=== PATIENT | female | born 1990 | race Caucasian/White ===

== ENCOUNTER → 2019-12-04 13:37 | Outpatient (CLI) | payer BC, SELFPAY ==
[2019-12-04 14:16] LABS: Basophils % 0.4 % (0.1-2.0); Eosinophils # 0.1 K/mm3 (0.0-0.4); Eosinophils % 1.3 % (0.1-12.0); Hematocrit 38.7 % (37.0-47.0); Hemoglobin 13.1 g/dL (12.2-16.2); Lymphocytes # 1.4 K/mm3 (0.7-4.5); Mean Corpuscular HGB Conc 33.8 g/dL (31.8-35.4); Mean Corpuscular Hemoglobin 30.2 pg (27.0-31.2); Mean Corpuscular Volume 89.3 fl (81-99); Mean Platelet Volume 8.5 fl (7.4-10.4); Monocytes # 0.4 K/mm3 (0.1-1.0); Neutrophils # 3.4 K/mm3 (1.8-7.8); Neutrophils % 64.2 % (37.0-80.0); Platelet Count 301 K/mm3 (142-424); Red Blood Count 4.33 M/mm3 (4.20-5.40); White Blood Count 5.3 K/mm3 (4.8-10.8)
[2019-12-04 14:49] LABS: Alanine Aminotransferase 17 U/L (12-78); Albumin Level 4.7 g/dl (3.5-5.0); Albumin/Globulin Ratio 1.5 (1.1-1.8); Alkaline Phosphatase 51 U/L (38-126); Aspartate Amino Transferase 20 U/L (14-36); Blood Urea Nitrogen 13 mg/dl (7-17); Calcium 10.3 mg/dl (8.4-10.2); Carbon Dioxide 29 mmol/L (22.0-30.0); Chloride 101 mmol/L (98-107); Chol/HDL Ratio 1.5 (1-3.5); Cholesterol 134 mg/dl (140-200); Estimated Glomerular Filt Rate 117 ml/min (>60); GFR (African American) 142 ML/MIN (>60); Globulin 3.2 g/dL (1.3-3.2); Glucose 101 mg/dl (74-100); HDL Cholesterol 92 mg/dl (40-60); Sodium 138 mmol/L (136-145); Total Protein,Serum 7.9 g/dl (6.3-8.2); Triglycerides 48 mg/dl (30-150); VLDL Cholesterol 10 mg/dL (0-40)
[2019-12-04 15:01] LABS: Direct LDL Cholesterol 50.16 mg/dL (100-129)
[2019-12-04 15:06] LABS: T4 (Thyroxine) 16.5 ug/dl (5.53-11.0)
[2019-12-04 15:08] LABS: HCG,Quantitative < 2 mIU/ml (0-5.42)
[2019-12-04 15:20] LABS: Thyroid Stimulating Hormone 1.79 uIU/mL (0.465-4.68)
[2019-12-06 19:26] LABS: Vitamin D 25 Hydroxy 36.1 ng/mL (30.0-100.0)
== END ==
PROVIDERS: Visit Provider Nurse Practitioner Family
DX: R53.83 Other fatigue (principal)
CPT/HCPCS: 36415; 80053; 80061; 82652; 84436; 84443; 84702; 85025

== ENCOUNTER → 2022-03-13 16:18 | Outpatient (CLI) | payer BC, SELFPAY ==
[2022-03-13 16:31] LABS: Microscopic, Urine URINE MICROSCOPIC (MICROSCOPIC)
[2022-03-13 16:46] LABS: Basophils # 0.1 K/mm3 (0-0.2); Basophils % 0.8 % (0.1-2.0); Eosinophils # 0.1 K/mm3 (0.0-0.4); Eosinophils % 0.6 % (0.1-12.0); Hematocrit 36.3 % (37.0-47.0); Hemoglobin 11.8 g/dL (12.2-16.2); Lymphocytes # 1.3 K/mm3 (0.7-4.5); Lymphocytes % 12.9 % (10-50); Mean Corpuscular HGB Conc 32.5 g/dL (31.8-35.4); Mean Corpuscular Hemoglobin 30.8 pg (27.0-31.2); Mean Corpuscular Volume 94.9 fl (81-99); Mean Platelet Volume 8.9 fl (7.4-10.4); Monocytes # 0.8 K/mm3 (0.1-1.0); Monocytes % 8.1 % (1.7-9.3); Neutrophils % 77.7 % (37.0-80.0); Platelet Count 265 K/mm3 (142-424); Red Blood Count 3.82 M/mm3 (4.20-5.40); Red Cell Distribution Width 12.8 % (11.5-17.5); White Blood Count 10.4 K/mm3 (4.8-10.8)
[2022-03-13 16:47] LABS: Appearance,Urine CLEAR (Clear); Bilirubin,Urine Negative (Negative); Blood, Urine Negative (Negative); Color,Urine YELLOW (Yellow); Glucose,Urine (UA) Negative (Negative); Ketones,Urine Negative (Negative); Leukocyte Esterase,Urine Negative (Negative); Nitrate,Urine Negative (Negative); PH,Urine 5.5 (5.0-8.5); Protein,Urine Negative (Negative); Specific Gravity, Urine 1.015 (1.005-1.030); Urobilinogen,Urine 0.2 EU/dl (0.2)
[2022-03-13 17:17] LABS: Chloride 105 mmol/L (98-107); Potassium 3.9 mmoL/L (3.5-5.1); Sodium 135 mmol/L (136-145)
[2022-03-13 17:20] LABS: Anion Gap 7.9 mEq/L (5-15); Blood Urea Nitrogen 7 mg/dl (7-17); Calcium 9.8 mg/dl (8.4-10.2); Carbon Dioxide 26 mmol/L (22.0-30.0); Estimated Glomerular Filt Rate 185 ml/min (>60); GFR (African American) 224 ML/MIN (>60); Glucose 103 mg/dl (74-100); Iron 72 ug/dL (37-170)
[2022-03-13 17:21] LABS: RBC,Urine Occasional #/hpf (0-3); WBC,Urine Occasional #/hpf (0-3)
[2022-03-13 17:22] LABS: Bacteria,Urine 1+ /lpf
== END ==
PROVIDERS: Visit Provider Internal Medicine
DX: Z32.00 Encounter for pregnancy test, result unknown (principal)
CPT/HCPCS: 36415; 80048; 81001; 83540; 85025

== ENCOUNTER 2022-06-12 06:51 | Outpatient (CLI) | payer BC, SELFPAY ==
[2022-06-12] VITALS (21 sets, daily range): BP systolic 120–156; BP diastolic 67–96; PULSE 78–105; RESP 19; TEMP 36.7; O2SAT 98–99; BMI 30.2
[2022-06-12 07:50] LABS: Microscopic, Urine URINE MICROSCOPIC (MICROSCOPIC)
[2022-06-12 07:51] LABS: Appearance,Urine CLEAR (Clear); Bilirubin,Urine Negative (Negative); Blood, Urine TRACE-I (Negative); Color,Urine YELLOW (Yellow); Glucose,Urine (UA) Negative (Negative); Ketones,Urine Negative (Negative); Leukocyte Esterase,Urine Negative (Negative); Nitrate,Urine Negative (Negative); Protein,Urine TRACE (Negative); Specific Gravity, Urine >= 1.030 (1.005-1.030); Urobilinogen,Urine 0.2 EU/dl (0.2)
[2022-06-12 08:03] LABS: Amphetamine/Metha Screen,Urine Negative ng/ml (<1000)
[2022-06-12 08:04] LABS: Barbiturates Screen,Urine Negative ng/ml (<200); Benzodiazepines Screen,Urine Negative ng/ml (<200)
[2022-06-12 08:05] LABS: Cannabinoid Screen,Urine Negative ng/ml (<50)
[2022-06-12 08:06] LABS: Cocaine Screen,Urine Negative ng/ml (<300); Methadone Screen,Urine Negative ng/ml (<300)
[2022-06-12 08:07] LABS: Phencyclidine Screen,Urine Negative ng/ml (<25)
[2022-06-12 08:08] LABS: Opiate Screen,Urine Negative ng/ml (<300)
[2022-06-12 08:11] LABS: Bacteria,Urine Trace /lpf; Mucus,Urine Trace /lpf; RBC,Urine Occasional #/hpf (0-3); Squamous Epithelial Cell,Urine Occasional #/hpf (0-5)
[2022-06-12 09:00] LABS: Basophils # 0.1 K/mm3 (0-0.2); Basophils % 0.5 % (0.1-2.0); Eosinophils # 0.1 K/mm3 (0.0-0.4); Eosinophils % 0.8 % (0.1-12.0); Hematocrit 33.9 % (37.0-47.0); Hemoglobin 11.4 g/dL (12.2-16.2); Lymphocytes # 2.4 K/mm3 (0.7-4.5); Lymphocytes % 25.7 % (10-50); Mean Corpuscular HGB Conc 33.7 g/dL (31.8-35.4); Mean Corpuscular Hemoglobin 29.7 pg (27.0-31.2); Mean Corpuscular Volume 88.1 fl (81-99); Mean Platelet Volume 9.3 fl (7.4-10.4); Monocytes # 0.5 K/mm3 (0.1-1.0); Monocytes % 4.9 % (1.7-9.3); Neutrophils # 6.4 K/mm3 (1.8-7.8); Platelet Count 274 K/mm3 (142-424); Red Blood Count 3.85 M/mm3 (4.20-5.40); White Blood Count 9.4 K/mm3 (4.8-10.8)
[2022-06-12 09:17] LABS: Alanine Aminotransferase 38 U/L (12-78); Albumin Level 3.6 g/dl (3.5-5.0); Albumin/Globulin Ratio 1.1 (1.1-1.8); Alkaline Phosphatase 211 U/L (38-126); Anion Gap 13.6 mEq/L (5-15); Aspartate Amino Transferase 40 U/L (14-36); Bilirubin,Total 0.9 mg/dl (0.2-1.3); Blood Urea Nitrogen 5 mg/dl (7-17); Calcium 9.2 mg/dl (8.4-10.2); Carbon Dioxide 23 mmol/L (22.0-30.0); Chloride 101 mmol/L (98-107); Creatinine Clearance Estimated 236 mL/min (50-200); Estimated Glomerular Filt Rate 184 ml/min (>60); GFR (African American) 222 ML/MIN (>60); Globulin 3.3 g/dL (1.3-3.2); Glucose 100 mg/dl (74-100); Potassium 3.6 mmoL/L (3.5-5.1); Sodium 134 mmol/L (136-145); Total Protein,Serum 6.9 g/dl (6.3-8.2); Uric Acid 4.1 mg/dl (2.5-6.2)
[2022-06-12 09:21] LABS: Activated Partial Thrombo Time 26.6 seconds (22.8-30.6); D-Dimer 1.06 ug/mL (0.0-0.5); Fibrinogen 496 mg/dL (229.9-363.5); Prothrombin Time 9.8 seconds (10.1-12.5)
== END 2022-06-12 11:04 | disposition home or self-care (01) ==
LOC: OBOUT 06:59 → OB 07:00
PROVIDERS: Obstetrics & Gynecology; Visit Provider Obstetrics & Gynecology
DX: O47.00 False labor before 37 completed weeks of gestation, unspecified trimester (principal); Z3A.35 35 weeks gestation of pregnancy
CPT/HCPCS: 59025; 80053; 80305; 81001; 84550; 85025; 85378; 85384; 85610; 85730; 96365; 96366; 96372; G0463

== ENCOUNTER 2022-07-08 10:20 | Emergency (ER) | payer BC, SELFPAY ==
[2022-07-08 10:21] VITALS: BP 129/86; PULSE 125; RESP 17; TEMP 36.7; O2SAT 99; BMI 28.3
--- NOTE | 2022-07-08 10:36 | PC.NURSE ---
1036 RN AT BEDSIDE WHILE PERFORMS BREAST U/S. PT PLACED IN GOWN. WARM BLANKET PROVIDED
--- NOTE | 2022-07-08 10:42 | HMH.EDGENADL ---
Discharge Plan Disposition Patient Disposition: Home, Self-Care Condition: Good Prescriptions Prescriptions: New cefadroxil 500 mg capsule 500 mg PO BID 7 Days Qty: 14 0RF No Action Pre-Maylin Multivitamins/Minerals 27-1-300 mg Capsule 1 cap PO DAILY Referrals Follow up/Referrals: Provider,Referral, [Primary Care Provider] - See instructions Clinical Impressions Clinical Impression: Acute breast pain, Cellulitis of right breast, Occlusion of lactiferous duct of right breast Discharge ED Provider: Milo Ortez General Adult HPI General Chief complaint: Fever Stated complaint: fever csection 3 weeks ago Time Seen by Provider: 07/08/22 10:30 Mode of Arrival: Ambulatory Source of Information: Patient Limitations: No Limitations History of Present Illness HPI narrative: This is an otherwise healthy 32-year-old female who is G1, P1 3 weeks out from delivery presenting with fever, breast pain. Patient states that on 07/07 in the PM, she began having right-sided breast tenderness and fever of 100.9. Has not noticed anything that makes the pain or discomfort better. Applying pressure makes the pain worse. She has also been nauseous without vomiting. Denies cough, shortness of breath, chest pain, vomiting, diarrhea, abdominal pain, dysuria, hematuria, abnormal vaginal discharge or bleeding, or any other concerning symptoms. Related Data Home Medications Medication Instructions Recorded Confirmed [id number] 3-fat com #1 27 1 cap PO DAILY Supplement 06/12/22 06/12/22 mg-1 mg-300 mg capsule Previous Rx's Medication Instructions Recorded cefadroxil 500 mg capsule 500 mg PO BID 7 days #14 caps 07/08/22 Allergies Allergy/AdvReac Type Severity Reaction Status Date / Time No Known Drug Allergies - Allergy Unknown NA Uncoded 05/30/21 13:50 Nkda [facility] Disclaimer: The information contained in this section may have been updated after the patient was seen, as this information can be updated by other users. Medical History (Updated 07/08/22 @ 10:48 by Milo Ortez MD) No significant past medical history Family History (Updated 06/12/22 @ 08:45 by Liz Evans, DAHIANA) Father Family history of hypertension Mother Family history of hypertension Other No significant family history Social History (Updated 06/12/22 @ 07:50 by Liz Evans RN) Smoking Status: Never smoker alcohol intake: never current occupational status: employed Travel in the last 8 weeks: None ROS Obtained: Yes All systems reviewed & no additional complaints except as documented Physical Exam General General appearance: alert and in no apparent distress Head Head exam: atraumatic, normocephalic and normal inspection Eye Eye exam: Present normal appearance, PERRL and EOMI ENT ENT exam: Present normal exam, normal oropharynx, mucous membranes moist, TM's normal bilaterally and normal external ear exam Neck Neck exam: Present normal inspection, full ROM and trachea midline; Absent meningismus or lymphadenopathy Chest Chest inspection: Present symmetric chest wall rise; Absent normal inspection or tenderness Expanded Chest Exam Breast: right: erythema, swelling, tenderness and mass Comment: No evidence of lymphadenopathy, redness or streaking beyond point of tenderness. Respiratory Respiratory exam: Present normal lung sounds bilaterally; Absent respiratory distress Cardiovascular Cardiovascular exam: Present regular rate and normal rhythm; Absent JVD Abdominal Exam Abdominal exam: Present soft and normal bowel sounds; Absent distention, tenderness or guarding Extremities Exam Extremities exam: Present normal inspection, full ROM and normal capillary refill; Absent calf tenderness Back Exam Back exam: Present normal inspection; Absent tenderness Neurological Exam Neurological exam: Present alert and oriented X3 Psychiatric Psychiatric exam: Present normal
[2022-07-08 10:58] VITALS: BP 110/77; PULSE 100; RESP 17; TEMP 36.7; O2SAT 99
== END 2022-07-08 11:00 | disposition home or self-care (01) ==
PROVIDERS: Emergency Provider Emergency Medicine
DX: N61.0 Mastitis without abscess (principal); R50.9 Fever, unspecified; R11.0 Nausea; D21.9 Benign neoplasm of connective and other soft tissue, unspecified
CPT/HCPCS: 99283

== ENCOUNTER 2023-04-07 10:32 | Emergency (ER) | payer BC, SELFPAY ==
[2023-04-07 11:10] VITALS: BP 141/90; PULSE 83; RESP 21; TEMP 36.6; O2SAT 99; BMI 23.1
--- NOTE | 2023-04-07 11:32 | EXP.UTC ---
Discharge Plan Disposition Patient Disposition: Home, Self-Care Condition: Good Prescriptions Prescriptions: New ondansetron 4 mg Tablet,Disintegrating 4 mg PO Q8H PRN (Reason: Nausea) Qty: 20 0RF Referrals Follow up/Referrals: Provider,Referral, MD [Primary Care Provider] - See instructions Activity Restrictions/Add. Instructions Additional Instructions/Restrictions: Go home lay down and sleep off remainder of headache You was prescribed Zofran if you need to take something later for the Nausea and vomiting Return if needed Straight to ER if any life threatening symptoms Clinical Impressions Clinical Impression: Migraine Qualifiers: Migraine type: unspecified Status migrainosus presence: without status migrainosus Intractability: not intractable Qualified Code(s): G43.909 - Migraine, unspecified, not intractable, without status migrainosus Instructions Patient Instructions: Migraine -- Adult, DI for Nausea -- Adult, DI for Vomiting -- Adult Discharge ED Provider: Yue Naranjo [facility] General Stated complaint: h/a, vomiting Mode of Arrival: Ambulatory Source of Information: Patient Limitations: No Limitations Time Seen by Provider: 04/07/23 11:37 Description of Symptoms (Recalled from Triage Doc. by RN): PATIENT C/O VOMITING, NAUSEA AND HEADACHE THAT STARTED THIS MORNING HEENT Symptoms (Recalled from RN notes): Yes Resp Symptoms (Recalled from RN notes): No Skin Symptoms (Recalled from RN notes): No MS Symptoms (Recalled from RN notes): No Functional Status (Recalled from RN notes): WNL History of Present Illness Provider Complaint: Patient states that this morning she started with headache, nausea and vomiting States that she has had headaches before States that she has been having N/V since the headache started Denies worse headache of her life State that she has not felt ill prior to this am Denies fever Denies worse headache of her life and denies vision changes Related Data Previous Rx's Medication Instructions Recorded ondansetron 4 mg disintegrating 4 mg PO Q8H PRN Nausea #20 tabs 04/07/23 tablet Allergies Allergy/AdvReac Type Severity Reaction Status Date / Time No Known Allergies Allergy Verified 04/07/23 11:29 Worker's Comp Is this a Worker's Comp case?: No [facility] Disclaimer: The information contained in this section may have been updated after the patient was seen, as this information can be updated by other users. Medical History (Updated 04/07/23 @ 12:12 by Yue Naranjo APRN) No significant past medical history Family History (Updated 06/12/22 @ 08:45 by iLz Evans RN) Father Family history of hypertension Mother Family history of hypertension Other No significant family history Social History (Updated 06/12/22 @ 07:50 by Liz Evans RN) Smoking Status: Never smoker alcohol intake: never current occupational status: employed Travel in the last 8 weeks: None ROS Obtained: Yes All systems reviewed & no additional complaints except as documented and Yes Systems reviewed as appropriate & no additional complaints except as documented Constitutional Constitutional: Reports system reviewed and no additional complaints, except as documented, Reports as per HPI, Denies fever(s), Reports headache(s) and Denies weakness Eyes Eyes: Denies loss of vision ENT Ears, Nose, Mouth, and Throat: Reports system reviewed and no additional complaints, except as documented, Reports as per HPI, Reports headache(s) and Denies vertigo Cardiovascular Cardiovascular: Reports system reviewed and no additional complaints, except as documented, Reports as per HPI and Denies syncope Respiratory Respiratory: Reports system reviewed and no additional complaints, except as documented and Reports as per HPI Gastrointestinal Gastrointestingal: Reports system reviewed and no additional complaints, except as documented, as per HPI, nausea and vomiting; Cheo
[2023-04-07 12:06] LABS: UTC Pregnancy Test, Urine Negative (Negative)
[2023-04-07 12:09] VITALS: BP 141/90; PULSE 83; RESP 21; TEMP 36.6; O2SAT 99
== END 2023-04-07 12:15 | disposition home or self-care (01) ==
PROVIDERS: Emergency Provider Nurse Practitioner
DX: G43.909 Migraine, unspecified, not intractable, without status migrainosus (principal); R11.2 Nausea with vomiting, unspecified
CPT/HCPCS: 81025; 96372; 99204; 99212; G0463

== ENCOUNTER → 2023-04-23 11:08 | Outpatient (CLI) | payer BC, SELFPAY ==
--- NOTE | 2023-04-23 11:11 | XR_ITS ---
FINAL REPORT TECHNIQUE: 5 views CLINICAL HISTORY: low back pain x 1 mos, no known injury COMPARISON: None FINDINGS: There is no fracture present. There is no malalignment. There are no significant degenerative changes. IMPRESSION: No acute process. Reviewed, Interpreted and Dictated by Sukumar Palacios MD Transcribed by Hemalatha Khan Authenticated and . [facility]
[2023-04-23 13:25] LABS: Basophils % 0.4 % (0.1-2.0); Eosinophils # 0.1 K/mm3 (0.0-0.4); Eosinophils % 1.8 % (0.1-12.0); Hematocrit 42.4 % (37.0-47.0); Hemoglobin 13.6 g/dL (12.2-16.2); Lymphocytes # 1.3 K/mm3 (0.7-4.5); Lymphocytes % 28.3 % (10-50); Mean Corpuscular HGB Conc 32.1 g/dL (31.8-35.4); Mean Corpuscular Hemoglobin 28.4 pg (27.0-31.2); Mean Corpuscular Volume 88.4 fl (81-99); Mean Platelet Volume 9.9 fl (7.4-10.4); Monocytes # 0.3 K/mm3 (0.1-1.0); Monocytes % 6.8 % (1.7-9.3); Neutrophils # 2.9 K/mm3 (1.8-7.8); Neutrophils % 62.7 % (37.0-80.0); Platelet Count 281 K/mm3 (142-424); Red Cell Distribution Width 13.2 % (11.5-17.5); White Blood Count 4.5 K/mm3 (4.8-10.8)
[2023-04-23 13:57] LABS: Alanine Aminotransferase 17 U/L (12-78); Albumin Level 4.8 g/dl (3.5-5.0); Albumin/Globulin Ratio 1.5 (1.1-1.8); Alkaline Phosphatase 70 U/L (38-126); Anion Gap 14.8 mEq/L (5-15); Aspartate Amino Transferase 23 U/L (14-36); Bilirubin,Total 1.8 mg/dl (0.2-1.3); Blood Urea Nitrogen 11 mg/dl (7-17); Calcium 9.3 mg/dl (8.4-10.2); Carbon Dioxide 26 mmol/L (22.0-30.0); Chloride 102 mmol/L (98-107); Chol/HDL Ratio 2.2 (1-3.5); Cholesterol 171 mg/dl (140-200); Estimated Glomerular Filt Rate 115 ml/min (>60); GFR (African American) 139 ML/MIN (>60); Globulin 3.2 g/dL (1.3-3.2); Glucose 89 mg/dl (74-100); HDL Cholesterol 79 mg/dl (40-60); Potassium 4.8 mmoL/L (3.5-5.1); Sodium 138 mmol/L (136-145); Triglycerides 50 mg/dl (30-150); VLDL Cholesterol 10 mg/dL (0-40)
[2023-04-23 14:08] LABS: Direct LDL Cholesterol 76.03 mg/dL (100-129)
[2023-04-23 14:14] LABS: 25-OH Vitamin D, Total 37.1 ng/mL (30-100)
[2023-04-23 14:15] LABS: Free T4 (Free Thyroxine) 1.18 ng/dl (0.78-2.19)
[2023-04-23 14:25] LABS: Hemoglobin A1C 5.4 % (4.0-6.0)
[2023-04-23 14:29] LABS: Thyroid Stimulating Hormone 1.28 uIU/mL (0.465-4.68)
[2023-04-23 14:48] LABS: Vitamin B12 592 pg/mL (239-931)
== END ==
PROVIDERS: PCP Nurse Practitioner Family; Visit Provider Nurse Practitioner Family
DX: M54.50 Low back pain, unspecified (principal); F41.9 Anxiety disorder, unspecified; R53.83 Other fatigue; Z13.1 Encounter for screening for diabetes mellitus; Z13.220 Encounter for screening for lipoid disorders; Z68.23 Body mass index [BMI] 23.0-23.9, adult
CPT/HCPCS: 72110; 80053; 80061; 82306; 82607; 83036; 84439; 84443; 85025

== ENCOUNTER → 2023-04-23 14:43 | Outpatient (CLI) | payer BC, SELFPAY | PROVIDERS: PCP Nurse Practitioner Family; Visit Provider Nurse Practitioner Family | DX: M54.50 Low back pain, unspecified (principal) ==

== ENCOUNTER → 2023-05-02 09:43 | Outpatient (CLI) | payer BC, SELFPAY ==
--- NOTE | 2023-05-02 09:44 | MR_ITS ---
PROCEDURE INFORMATION: Exam: MR Pelvis Without Contrast, Musculoskeletal Exam date and time: 05/02/2023 9:38 AM Age: 32 years old Clinical indication: Other: Low back pain; Patient HX: Lower back pain, small palpable area (marker placed on area), elevated white count, fatigue. TECHNIQUE: Imaging protocol: Magnetic resonance imaging of the pelvis without contrast. Exam focused on the musculoskeletal system. COMPARISON: CR XR LUMBAR SPINE MIN 4V 04/23/2023 11:18 AM FINDINGS: Intraperitoneal space: A physiologic amount of free fluid is present within the pelvis. Reproductive: The uterus has two endometrial horns suggesting bicornuate or arcuate morphology. The morphology of the fundal contour (convex versus having a cleft) cannot be definitively assessed for differentiation. There are bilateral physiologic ovarian cysts/follicles. A defect in the anterior inferior uterine wall is most consistent with prior Caesarean section. Lymph nodes: No adenopathy. Bones/joints: There is no acute fracture or dislocation. No aggressive bone lesions are present. There is no significant degenerative change. Soft tissues: A skin marker was placed in the symptomatic region of the left lower back. This is located at the upper limits of the field of view of the axial sequences. Mild edema is present in the subcutaneous fat distal to the skin marker. The subcutaneous fat is lobulated similar to the contralateral asymptomatic side of the lower back without a grossly apparent lipoma. The paraspinal musculature is normal. No soft tissue gas or abscess. IMPRESSION: 1. Symptomatic region of the left lower back indicated with a skin marker corresponds to nonspecific edema in the subcutaneous fat distal to the marker. No mass or abscess. A lipoma is difficult to exclude in the setting of diffusely lobulated fat. 2. 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
== END ==
PROVIDERS: PCP Nurse Practitioner Family; Visit Provider Nurse Practitioner Family
DX: R22.2 Localized swelling, mass and lump, trunk (principal); M54.50 Low back pain, unspecified
CPT/HCPCS: 72195

== ENCOUNTER 2023-06-15 17:00 | Outpatient (RCR) | payer BC, SELFPAY | END 2023-06-15 17:55 | disposition home or self-care (01) | LOC: PT 17:00 | PROVIDERS: PCP Nurse Practitioner Family; Visit Provider Nurse Practitioner Family | DX: M54.50 Low back pain, unspecified (principal) | CPT/HCPCS: 20561; 97010; 97014; 97110; 97163; G0283 ==

== ENCOUNTER 2023-09-10 07:36 | Outpatient (CLI) | payer BC, SELFPAY ==
--- NOTE | 2023-09-10 07:36 | MR_ITS ---
FINAL REPORT CLINICAL HISTORY: lumbar spine pain into right hip. COMPARISON: None FINDINGS: Multiplanar MR imaging of the lumbar spine was performed without contrast. On the sagittal T2-weighted images, mild disc degeneration is seen. The vertebral alignment is normal. There is no evidence of fracture. No bony mass is identified. The conus has an unremarkable appearance. No significant canal stenosis is identified. L1-2: No significant central canal stenosis or neuroforaminal narrowing. L2-3: No significant central canal stenosis or neuroforaminal narrowing. L3-4: No significant central canal stenosis or neuroforaminal narrowing. L4-5: No significant central canal stenosis or neuroforaminal narrowing. Note is made of a 3 mm synovial cyst in the posterior aspect of the left L4-5 facet. L5-S1: A small annular bulge is identified without evidence of canal stenosis or neural foraminal narrowing. IMPRESSION: No significant central canal stenosis or neuroforaminal narrowing. Reviewed, Interpreted and Dictated by Blanco Lynch III, MD Transcribed by Hemalatha Khan Authenticated and [facility]
== END 2023-09-10 23:59 ==
LOC: RAD 07:36
PROVIDERS: PCP Nurse Practitioner Family; Visit Provider Nurse Practitioner Family
DX: M54.50 Low back pain, unspecified (principal)
CPT/HCPCS: 72148; 76376

== ENCOUNTER 2024-01-18 14:32 | Outpatient (CLI) | payer BC, SELFPAY ==
--- NOTE | 2024-01-18 14:32 | US_ITS ---
PROCEDURE INFORMATION: Exam: US Right Breast, Complete US Left Breast, Complete Exam date and time: 01/18/2024 2:50 PM Age: 33 years old Clinical indication: Bilateral breast pain. TECHNIQUE: Imaging protocol: Complete ultrasound of all four quadrants of the right breast and the retroareolar regions, including ultrasound of the axilla when performed. Complete ultrasound of all four quadrants of the left breast and the retroareolar regions, including ultrasound of the axilla when performed. COMPARISON: No relevant prior studies available. FINDINGS: ULTRASOUND: Breast ultrasound findings: Bilateral sonography, all 4 quadrants, and axilla. On the right, at 10 o'clock 6 cm from the nipple, oval tubular masslike area with avascular low-level echoes which is more likely a dilated duct with debris, similar to the findings in the retroareolar region. Sonographically unremarkable axillary lymph node. On the left, no sonographic findings demonstrated. Sonographically unremarkable axillary lymph node. IMPRESSION: Probable dilated ducts with debris on the right retroareolar region and more focally at 10 o'clock, correlate for history of nipple discharge. Suggest adding bilateral diagnostic mammogram for above finding as well as history of bilateral breast pain. Further evaluation of a painful abnormality should be based on clinical grounds regardless of radiographic findings or lack thereof. ASSESSMENT: BI-RADS Category 0: Incomplete: Need Additional Imaging Evaluation and/or Prior Mammograms for Comparison
== END 2024-01-18 23:59 | disposition home or self-care (01) ==
LOC: RAD 14:32
PROVIDERS: PCP Nurse Practitioner Family; Visit Provider Obstetrics & Gynecology
DX: N64.4 Mastodynia (principal)
CPT/HCPCS: 76641

== ENCOUNTER 2024-04-08 12:24 | Outpatient (CLI) | payer BC, SELFPAY ==
[2024-04-08 13:32] LABS: HCG,Quantitative 9708 mIU/ml (0-5.42)
[2024-04-09 12:37] LABS: Progesterone 8.7 ng/mL (.)
== END 2024-04-08 23:59 | disposition home or self-care (01) ==
LOC: LAB 12:24
PROVIDERS: PCP Nurse Practitioner Family; Visit Provider Obstetrics & Gynecology
DX: Z32.01 Encounter for pregnancy test, result positive (principal); N92.6 Irregular menstruation, unspecified
CPT/HCPCS: 36415; 84144; 84702

== ENCOUNTER 2024-04-22 11:05 | Outpatient (CLI) | payer BC, SELFPAY ==
--- NOTE | 2024-04-22 11:09 | US_ITS ---
PROCEDURE: US OB <= 14 WEEKS FETUS CLINICAL INDICATION: Dates and Viability COMPARISON: No exams were available for comparison FINDINGS: Transvaginal sonographic images of the pelvis were obtained. From her last menstrual period she is 9weeks 0 days. An intrauterine gestational sac is present with a pole with a crown-rump length of 1.32cm This correlates to a gestational age of 7weeks 5days. DYLON 12/04/2024. heart tones are present with an FHR of 158bpm. Yolk sac is noted. The yolk sac measures 5.1mm. There is a posterior fibroid measuring 1.35 cm x 1.24 cm x 1.92 cm. There is a 2nd smaller fibroid measuring 0.52 cm. There is a third fibroid measures 1.03 cm. The right ovary is seen and appears normal. There are multiple small peripheral follicles. The left ovary is seen and appears normal. There is no fluid in the cul-de-sac. IMPRESSION: 1. Viable fetus within the uterine cavity. 2. There are 3 small fibroids within the uterus. The largest measures 1.9 cm. 3. The size and dates are off and the revised DYLON is 12/04/2024. 4. Both ovaries are seen and appear normal. 5. No fluid in the cul-de-sac. Dictated by: Darrel Chappell MD 04/23/2024 06:46 Darrel Chappell MD in OV 04/23/2024 06:46
[2024-04-22 15:25] LABS: HIV (1&2) Antibody Rapid NONREACTIVE (NONREACTIVE)
[2024-04-22 16:09] LABS: Basophils % 0.6 % (0.1-2.0); Eosinophils # 0.1 K/mm3 (0.0-0.4); Hematocrit 41.8 % (37.0-47.0); Hemoglobin 13.3 g/dL (12.2-16.2); Lymphocytes # 1.6 K/mm3 (0.7-4.5); Lymphocytes % 21.7 % (10-50); Mean Corpuscular HGB Conc 31.7 g/dL (31.8-35.4); Mean Corpuscular Hemoglobin 30.1 pg (27.0-31.2); Mean Corpuscular Volume 94.9 fl (81-99); Mean Platelet Volume 8.4 fl (7.4-10.4); Monocytes # 0.5 K/mm3 (0.1-1.0); Monocytes % 6.6 % (1.7-9.3); Neutrophils # 5.2 K/mm3 (1.8-7.8); Neutrophils % 70.1 % (37.0-80.0); Platelet Count 293 K/mm3 (142-424); Red Cell Distribution Width 12.5 % (11.5-17.5); White Blood Count 7.4 K/mm3 (4.8-10.8)
[2024-04-23 08:21] LABS: HCV Ab Non Reactive (Non Reactive); Hepatitis B Surface Antigen Negative (Negative); Rubella Antibodies, IgG 6.55 index (Immune >0.99)
[2024-04-23 14:15] LABS: Rapid Plasma Reagin Ab Titer Non Reactive titer (NonRea<1:1)
== END 2024-04-22 23:59 | disposition home or self-care (01) ==
LOC: LAB 11:06
PROVIDERS: PCP Nurse Practitioner Family; Visit Provider Obstetrics & Gynecology
DX: Z36.87 Encounter for antenatal screening for uncertain dates (principal); O34.00 Maternal care for unspecified congenital malformation of uterus, unspecified trimester; Q51.3 Bicornate uterus; O09.299 Supervision of pregnancy with other poor reproductive or obstetric history, unspecified trimester; Z3A.09 9 weeks gestation of pregnancy
CPT/HCPCS: 36415; 76801; 85025; 86593; 86762; 86803; 86850; 86870; 87086; 87340; 87389

== ENCOUNTER 2024-05-09 10:01 | Outpatient (CLI) | payer BC, SELFPAY ==
--- NOTE | 2024-05-09 10:05 | US_ITS ---
PROCEDURE: US OB <= 14 WEEKS FETUS CLINICAL INDICATION: confirm viability COMPARISON: US US OB <= 14 WEEKS FETUS from 04/22/2024 US US PELVIC from 05/09/2024 FINDINGS: Transvaginal sonographic images of the pelvis were obtained. From her last menstrual period she is 10weeks 0 days. An intrauterine gestational sac is present with a pole with a crown-rump length of 1.8cm This correlates to a gestational age of 8weeks 3days. heart tones are absent. The right ovary is seen and appears normal. The left ovary is seen and appears normal. There is no fluid in the cul-de-sac. IMPRESSION: 1. Nonviable fetus within the uterine cavity measuring 8 weeks 3 days. 2. heart rate activity is not seen. 3. Both ovaries are seen and appear normal. 4. No fluid in the cul-de-sac. 5. A 2nd transabdominal ultrasound done during a D and C shows no residual tissue. Dictated by: Darrel Chappell MD 05/10/2024 07:09 Darrel Chappell MD in OV 05/10/2024 07:09
== END 2024-05-09 23:59 | disposition home or self-care (01) ==
PROVIDERS: PCP Nurse Practitioner Family; Visit Provider Obstetrics & Gynecology
DX: O34.01 Maternal care for unspecified congenital malformation of uterus, first trimester (principal); Q51.3 Bicornate uterus; O09.291 Supervision of pregnancy with other poor reproductive or obstetric history, first trimester; Z3A.10 10 weeks gestation of pregnancy
CPT/HCPCS: 76801

== ENCOUNTER 2024-05-09 12:53 | Day surgery (SDC) | payer BC, SELFPAY ==
[2024-05-09] VITALS (9 sets, daily range): BP systolic 110–142; BP diastolic 64–71; PULSE 88–104; RESP 14–18; TEMP 36.6–37.2; O2SAT 94–100; BMI 24.7
--- NOTE | 2024-05-09 | US_ITS ---
PROCEDURE: US PELVIC CLINICAL INDICATION: Post dilation and evacuation ultrasound in the operating room COMPARISON: US US OB <= 14 WEEKS FETUS from 05/09/2024 FINDINGS: A transabdominal ultrasound was done during dilation and evacuation procedure. No retrained products of conception. IMPRESSION: 1. Ultrasound performed during surgical dilation and evacuation shows no retained products of conception. Dictated by: Darrel Chappell MD 05/10/2024 07:23 Darrel Chappell MD in OV 05/10/2024 07:23
[2024-05-09] MEDS: DOXYCYCLINE HYCL 100 MG TABLET 200 MG PO (13:11)
[2024-05-09] MEDS: ACETAMINOPHEN 500MG TAB 1000 MG PO (13:12)
[2024-05-09] MEDS: LACTATED RINGERS 1000ML 1,000 ML 25 ML IV (13:12)
[2024-05-09] MEDS: ONDANSETRON 4MG/2ML VIAL 4 MG IV (13:45)
--- NOTE | 2024-05-09 15:14 | P.PNANES_ITS ---
[facility] Disclaimer: The information contained in this section may have been updated after the patient was seen, as this information can be updated by other users. Medical History Missed Advanced maternal age in multigravida Uterine fibroids affecting Bicornuate uterus affecting , antepartum History of miscarriage, currently Anxiety Thoracic scoliosis Bulging lumbar disc Palpable mass of lower back Surgical History History of Family History Father Family history of hypertension Mother Family history of hypertension Social History Smoking Status: Never smoker alcohol intake: never substance use type: denies use current occupational status: employed Travel in the last 8 weeks: None [facility] Anesthesia Checklist Patient Identification Patient Identification: Arm Band Structural Data Admitted From: Home Planned Operative Procedure/s: D&C with Dodge Suction Consent for Planned Operative Procedure(s) Verified: Yes Verified Documents: Surgical Consent and History and Physical NPO Status Verified Time NPO: 09:00 (light breakfast) Additional verifications Anesthesia Reactions: No Hx Blood Transfusions: No Airway Assessment Mallampati Score:: Class II C-Spine Mobility Assessed: Yes TMJ Mobility Assessed: Yes Dentition: Good Dentition Neurological Assessment Level of Consciousness: Awake, Alert and Appropriate Anesthesia Plan Anesthesia Risk discussed: Yes Anesthesia Plan: Verified ASA Class: I Anesthesia Type: General
--- NOTE | 2024-05-09 15:34 | EXP.ANES.I ---
[facility] Anesthesia Record Part I Anesthesia Record I Intake, IV Amount: 1,000 Hydration: Adequate Estimated blood loss (mL): 25 Urine output (mL): 0 Blood Products used (#): none Blood Pressure: 118/71 SaO2: 94 Pulse Rate: 88 Airway Patency: Patent Respiratory Rate: 16 Temperature: 99 F Patient is:: Drowsy and Stable Stable to PACU at:: 15:30
--- NOTE | 2024-05-09 15:38 | P.OP_ITS ---
Date of procedure: 05/09/24 Pre-op Diagnosis:: 1. Missed 2. Birconuate uterus 3. ABO RH: A positive Post-op Diagnosis:: 1. Missed 2. Birconuate uterus 3. ABO RH: A positive Procedure performed:: Ultrasound guided suction D&C Surgeon:: Ree Soriano DO Enterprise Systems Architect(s):: N/a BARN MANAGER:: Shahram Ramos Anesthesia: GETA Estimated blood loss (mL): 25 Clinical Note:: Mrs Vivi Espinoza is a 34 yo at 10w1d who presents to [facility] for scheduled procedure. She was seen in the office today for second ob visit. Ultrasound in the office was very poor quality and difficult to visualize baby. Vivi was sent to [facility] radiology for follow-up ultrasound. Ultrasound at [facility] demonstrated CRL 8w3d with no cardiac activity. Ultrasound consistent with missed . Discussed expectant management vs cytotec vs Suction D&C. She used Cytotec with last miscarriage and it was very hard emotionally. Discussion ensued. Decision was made to proceed with suction D&C. Will send products of conception for chromosomal analysis and karyotyping. This is her second miscarriage. She received Doxycycline 200 mg PO in preop. Operative findings:: 1. Cervix grossly normal. On bimanul exam, uterus midposition, approximately 10 week size. No adnexal masses palpated. Operative note:: Risks, benefits and alternatives were discussed with the patient. Risks include but are not limited to bleeding, infection, uterine perforation and VTE. Patient voiced understanding and agreed to proceed. She was wheeled back to the operating room and placed under general anesthesia without difficulty. She was placed in dorsal lithotomy position and prepped and draped in the normal sterile fashion. A bimanual exam was performed. A weighted Auvard was placed in the vaginal vault. Ringed forcep was used to grasp anterior lip of the cervix. Uterus sounded to 12. Sequential Axel dilators were used to dilate the cervical os. Ultrasound was performed during surgery to ensure complete removal of products of conception. Bowman suction was set to 40 mm Hg. An 8 mm curved palauan suction curettage was advanced into the uterine cavity without difficulty and was used to suction contents of the uterus. Following removal of the products of conception, a medium sized sharp curette was advanced into the uterine cavity and was used to gently scrape the uterine locke until a gritty texture was noted. At this time, the suction curette was advanced one more time to suction any remaining products of conception and blood. Instruments were removed from the vagina. Patient was awaken from anesthesia without difficulty. Products of conception will be sent to pathology as well as to an outside lab for chromosomal analysis and karyotyping. She was transported to recovery room in stable condition. Patient will be discharged home when awake and ambulating. Condition: stable Disposition: same day Specimens:: 1. Products of conception Complications:: None
== END 2024-05-09 16:30 | disposition home or self-care (01) ==
PROVIDERS: PCP Nurse Practitioner Family; Visit Provider Obstetrics & Gynecology
PROC: (CPT 59812; principal; 2024-05-09 15:00)
DX: O02.1 Missed abortion (principal); Q51.3 Bicornate uterus; Z67.90 Unspecified blood type, Rh positive
CPT/HCPCS: 59812; 76856; 96374; J1100; J1885; J2250; J2405; J3010; J7120

== ENCOUNTER 2024-07-01 13:57 | Outpatient (CLI) | payer BC, SELFPAY ==
[2024-07-04 10:10] LABS: Antinuclear Antibodies (ANA) Negative (Negative)
== END 2024-07-01 23:59 | disposition home or self-care (01) ==
LOC: LAB.DROPOF 07-02 07:06
PROVIDERS: PCP Nurse Practitioner Family; Visit Provider Nurse Practitioner Family
DX: M41.9 Scoliosis, unspecified (principal); M54.50 Low back pain, unspecified; M71.38 Other bursal cyst, other site; G89.29 Other chronic pain; M25.551 Pain in right hip; N64.4 Mastodynia
CPT/HCPCS: 86038

== ENCOUNTER 2024-07-15 09:15 | Outpatient (CLI) | payer BC, SELFPAY ==
--- NOTE | 2024-07-15 09:15 | US_ITS ---
PROCEDURE INFORMATION: Exam: US Left Breast, Complete US Right Breast, Complete Exam date and time: 07/15/2024 9:45 AM Age: 34 years old Clinical indication: Follow-up of probably benign finding in the right breast. TECHNIQUE: Imaging protocol: Complete ultrasound of all four quadrants of the left breast and the retroareolar regions, including ultrasound of the axilla when performed. Complete ultrasound of all four quadrants of the right breast and the retroareolar regions, including ultrasound of the axilla when performed. COMPARISON: US BREAST LT COMPLETE 01/18/2024 2:34 PM FINDINGS: ULTRASOUND: Breast ultrasound findings: In the right breast 10 o'clock axis, 8 cm from the nipple, there is a dilated duct with internal debris which appears benign and similar to the prior study. Throughout both breasts, there are multiple similar simple and clustered microcysts, with no suspicious solid mass, shadowing, or distortion. IMPRESSION: 1. No sonographic evidence of malignancy. Benign dilated duct in the right breast 10 o'clock axis. 2. Annual bilateral mammographic screening is recommended to commence at the age of 40 unless otherwise clinically indicated. ASSESSMENT: BI-RADS Category 2: Benign.
== END 2024-07-15 23:59 | disposition home or self-care (01) ==
LOC: RAD 09:15
PROVIDERS: PCP Nurse Practitioner Family; Visit Provider Obstetrics & Gynecology
DX: N64.4 Mastodynia (principal)
CPT/HCPCS: 76641; 76642

== ENCOUNTER 2024-07-24 14:00 | Outpatient (RCR) | payer BC, SELFPAY ==
--- NOTE | 2024-07-11 17:34 | HMH.PTOPEV ---
PT Outpatient Evaluation Rehab PT Outpatient Evaluation Start: 07/11/24 16:07 Freq: Status: Active Protocol: Document 07/11/24 16:59 PHOWILMA (Rec: 07/11/24 17:33 PHORJAMES [id number]) E-signed By Torres Moulton, PT Outpatient Therapy Subjective History Subjective History This is the initial eval for Vivi Espinoza. Pt is a 34 yo female who presents w/ chief c /o of R hip pain. Pt reports the pain has been occurring for the past year. She states she received PT previous but did not have much benefit, although she states Dry needling helped a little bit . Pt reports LBP that goes into the R hip posteriorly. Pt denies pain distal to the knee but reports altered sensation in the R foot. Pt reports a having imagining performed on her low back that revealed a bulge at L5-S1 and a synovial cyst. Pt states she has thoracic scoliosis as well. Additionally, pt reports giving via . Pt reports her pain is worse toward the end of the day, but no specific posture or activity increases her symptoms. Pt describes her symptoms as aching and dull, and they are intermittent. She states she uses meds and heat at home to relieve her pain. Pt reports pain in the hip w/ squatting and when sitting for long periods. New diagnosis of cancer in past 12 No months? Chief Complaint Pain,Catches/Locks Symptom Type Ache,Dull Symptoms Relieved By Heat,OTC Meds Symptoms Aggravated By Physical Activity Prior Functional Limitations None Current Functional Limitations Squatting Symptom Description Intermittent Level of pain today (0-10) 0 Pain scale - at its best (0-10) 0 Pain scale - at its worst (0-10) 3 Lumbopelvic Eval Posture Thoracic Spine Posture Standing Position Flexible Scoliosis on (R) Lumbar Spine Posture Standing Position Neutral Gait Observation General Gait Pattern Observation No Deviations/Normal Palapation tenderness bilateral thoracic spinal tenderness No lumbar spinal tenderness No paraspinal tenderness No buttock tenderness No Range of Motion Lumbar Spine Active Flexion Range of 50 Motion (degrees) Lumbar Spine Active Extension Range of 21 Motion (degrees) Manual Muscle Test Right Hip Flexion Strength Grade 4 Good Hip Abduction Strength Grade 4- Good- Hip External Rotation Strength Grade 5 Normal Hip Internal Rotation Strength Grade 5 Normal Hip Extension Strength Grade 4- Good- Gluteus Morales Strength Grade 4- Good- Left Hip Flexion Strength Grade 5 Normal Hip Abduction Strength Grade 4 Good Hip External Rotation Strength Grade 5 Normal Hip Internal Rotation Strength Grade 5 Normal Hip Extension Strength Grade 4- Good- Gluteus Morales Strength Grade 4- Good- Altered Sensation Bilateral LE Dermatome Level L1,L2,L3,L4,L5,S1 Comment no discrepancies Special Tests Lumbar Spine Screen Negative Hip Scouring (Quadrant) Test Negative Right Hip Jovanny (JULIÁN) Test Positive Right Unilateral Straight Leg Raise (Lasegue) Negative Left,Negative Right Test Sacroiliac Joint Distraction Test Positive Right Hip/Knee Eval Gait Observation General Gait Pattern Observation No Deviations/Normal Assistive Device Assistive Devices None / NA Miscellaneous Dx PT Eval Objective Objective SI Provocation Tests: + on 4/5 Posterior shear= + JULIÁN= + Anterior distraction= + Posterior compression in sidelying= - Sacral thrust= + Active SLR: R scored 3/5 in difficulty (indicative of motor control deficit of SI) Outpatient Therapy Assessment Impairments Problems/Impairmments Impaired Range of Motion, Impaired Strength,Impaired Stair Climbing,Impaired Squatting,Impaired Work Activities,Subjective C/O Pain Prognosis Rehab Potential Good Comment PT services are indicated to increase strength, ROM, reduce pain, and improve neuromuscular control. Clinical Impression Consistent with Diagnosis Yes Consistent with R SI joint pain Short Term Goals Number of Weeks 3 Increase Range of Motion Yes: increase R hip deficits to L Increase Strength Yes: all hip mm at least 4+/5 Improve Ability For Household Care Yes: able to perform all w/ pain <2/10 Improve Ability to Squat Yes: able to squat w/ <3/10 pain Improve Tolerance to Work Activities Yes: pain at end of day <3/10 Improve LEFI Score Yes: improve score by 1 point Decrease Subjective C/O Pain Yes: pain at worst to 2/10 Patient to be Ind w/ HEP Yes: yes Group Home Goals Number of Weeks 6 Increase Strength Yes: 5/5 throughout hip Improve Ability For Household Care Yes: able to perform w/ 0/10 pain Improve Ability to Squat Yes: able to squat w/ 0/10 pain Improve Tolerance to Work Activities Yes: pain at end of day 0/10 Improve LEFI Score Yes: improve score by 2 points Decrease Subjective C/O Pain Yes: 1/10 pain at worst Patient to be Ind w/ Advanced HEP Yes: yes Outpatient Therapy Plan of Care Treatment Plan May Include Therapeutic Exercise Including Home Yes Exercise Program Manual Therapy Techniques Yes Neuromuscular Re-education Yes Therapeutic Activities to Return to Yes Previous Functional/Work Level ADL/Self Care Education Yes Mechanical Traction Yes Dry Needling Yes Thermal Modalities Yes Electrical Stimulation Yes Ultrasound/Phonophoresis Yes Massage Yes Eval/Re-Eval Yes Frequency Times per week 2-3 Duration Number of Weeks 4-6 Addendums This patient is a candidate for social No or vocational rehab? Patient/Guardian verbally acknowledges Yes understanding of treatment program and consents to further treatment? Patient/Guardian verbally acknowledges Yes understanding of diagnosis, prognosis and goals for treatment? Eval Complexity PT Charges 75804 - Moderate Complexity Shoulder/Elbow Eval Shoulder Objective Measurements Elbow Objective Measurements PHYSICIAN CERTIFICATION: I certify the specified therapy services for Vivi Espinoza are required, authorized, and reviewed every 30 days.
== END 2024-07-24 23:59 | disposition home or self-care (01) ==
LOC: PT 14:00
PROVIDERS: Visit Provider Nurse Practitioner Family
DX: M25.551 Pain in right hip (principal); M54.6 Pain in thoracic spine; M41.9 Scoliosis, unspecified; G89.29 Other chronic pain
CPT/HCPCS: 97014; 97110; 97163; 97530; G0283

== ENCOUNTER 2024-08-21 15:16 | Outpatient (CLI) | payer BC, SELFPAY ==
[2024-08-21 16:17] LABS: HCG,Quantitative 5 mIU/ml (0-5.42)
[2024-08-22 09:11] LABS: Progesterone 4.2 ng/mL (.)
== END 2024-08-21 23:59 | disposition home or self-care (01) ==
LOC: LAB 15:16
PROVIDERS: PCP Nurse Practitioner Family; Visit Provider Obstetrics & Gynecology
DX: O09.521 Supervision of elderly multigravida, first trimester (principal); D25.9 Leiomyoma of uterus, unspecified; O34.11 Maternal care for benign tumor of corpus uteri, first trimester; Q51.3 Bicornate uterus; O34.00 Maternal care for unspecified congenital malformation of uterus, unspecified trimester; N96 Recurrent pregnancy loss
CPT/HCPCS: 36415; 84144; 84702

== ENCOUNTER 2024-09-19 12:53 | Outpatient (CLI) | payer BC, SELFPAY ==
--- NOTE | 2024-09-19 12:53 | MR_ITS ---
FINAL REPORT TECHNIQUE: Multiplanar MR without contrast CLINICAL HISTORY: lumbar spine pain. RIGHT SIDED LOW BACK AND HIP PAIN. COMPARISON: 09/10/2023 FINDINGS: Sagittal images show normal vertebral height. Alignment is normal. Marrow signal pattern is unremarkable. L1-2: Unremarkable L2-3: Unremarkable L3-4: Unremarkable L4-5: Unremarkable L5-S1: Very minimal annular disc bulge, similar to prior exam. IMPRESSION: Unremarkable exam Reviewed, Interpreted and Dictated by Romeo Newell MD Transcribed by Griselda Vera Authenticated and [facility]
== END 2024-09-19 23:59 | disposition home or self-care (01) ==
LOC: RAD 12:53
PROVIDERS: PCP Nurse Practitioner Family; Visit Provider Nurse Practitioner Family
DX: M51.360 Other intervertebral disc degeneration, lumbar region with discogenic back pain only (principal)
CPT/HCPCS: 72148

== ENCOUNTER 2024-09-23 06:31 | Outpatient (CLI) | payer BC, SELFPAY ==
[2024-09-23 07:35] LABS: Basophils % 0.6 % (0.1-2.0); Eosinophils # 0.1 K/mm3 (0.0-0.4); Eosinophils % 2.4 % (0.1-12.0); Hematocrit 39.5 % (37.0-47.0); Hemoglobin 13.3 g/dL (12.2-16.2); Lymphocytes # 1.3 K/mm3 (0.7-4.5); Lymphocytes % 26.2 % (10-50); Mean Corpuscular HGB Conc 33.7 g/dL (31.8-35.4); Mean Corpuscular Hemoglobin 29.8 pg (27.0-31.2); Mean Corpuscular Volume 88.6 fl (81-99); Mean Platelet Volume 11.1 fl (7.4-10.4); Monocytes # 0.5 K/mm3 (0.1-1.0); Monocytes % 9.9 % (1.7-9.3); Neutrophils # 3.1 K/mm3 (1.8-7.8); Neutrophils % 60.7 % (37.0-80.0); Platelet Count 254 K/mm3 (142-424); Red Blood Count 4.46 M/mm3 (4.20-5.40); Red Cell Distribution Width 11.9 % (11.5-17.5)
[2024-09-23 08:04] LABS: Direct LDL Cholesterol 62.52 mg/dL (100-129)
[2024-09-23 08:10] LABS: Triiodothryronine (T3) Uptake 30 % (23.5-40.5)
[2024-09-23 08:11] LABS: Free Thyroxine Index 2.8 ug/dL (5.93-13.13); T4 (Thyroxine) 9.2 ug/dl (5.53-11.0)
[2024-09-23 08:25] LABS: Thyroid Stimulating Hormone 2.02 uIU/mL (0.465-4.68)
[2024-09-23 08:28] LABS: Ferritin 13.1 ng/ml (6.24-137)
[2024-09-23 08:50] LABS: 25-OH Vitamin D, Total 37.8 ng/mL (30-100)
[2024-09-23 09:21] LABS: Albumin Level 4.7 g/dl (3.5-5.0); Chloride 104 mmol/L (98-107)
[2024-09-23 09:22] LABS: Potassium 4.7 mmoL/L (3.5-5.1); Sodium 140 mmol/L (136-145)
[2024-09-23 09:24] LABS: Alanine Aminotransferase 19 U/L (12-78); Albumin/Globulin Ratio 1.7 (1.1-1.8); Anion Gap 12.7 mEq/L (5-15); Aspartate Amino Transferase 23 U/L (14-36); Blood Urea Nitrogen 13 mg/dl (7-17); Carbon Dioxide 28 mmol/L (22.0-30.0); Cholesterol 145 mg/dl (140-200); Estimated Glomerular Filt Rate 114 ml/min (>60); GFR (African American) 138 ML/MIN (>60); Globulin 2.7 g/dL (1.3-3.2); Total Protein,Serum 7.4 g/dl (6.3-8.2); Triglycerides 69 mg/dl (30-150); VLDL Cholesterol 14 mg/dL (0-40)
[2024-09-23 09:25] LABS: Alkaline Phosphatase 53 U/L (38-126); Bilirubin,Total 1.2 mg/dl (0.2-1.3); Calcium 9.3 mg/dl (8.4-10.2); Chol/HDL Ratio 2.6 (1-3.5); Glucose 104 mg/dl (74-100); HDL Cholesterol 56 mg/dl (40-60); Magnesium 1.9 mg/dl (1.6-2.3)
[2024-09-23 11:03] LABS: Vitamin B12 680 pg/mL (239-931)
[2024-09-24 06:57] LABS: Insulin Level Total 9.7 uIU/mL (2.6-24.9)
[2024-09-24 08:13] LABS: Estradiol 20.7 pg/mL (.); FSH 8.3 mIU/mL (.)
[2024-09-27 14:34] LABS: Vitamin B6 44.4 ug/L (3.4-65.2)
[2024-10-10 18:10] LABS: Testosterone, Total, LC/MS 14 ng/dL (.)
== END 2024-09-23 23:59 | disposition home or self-care (01) ==
LOC: LAB 06:33
PROVIDERS: PCP Nurse Practitioner Family; Visit Provider Obstetrics & Gynecology
DX: R53.83 Other fatigue (principal); R10.2 Pelvic and perineal pain; R61 Generalized hyperhidrosis
CPT/HCPCS: 36415; 80053; 80061; 82306; 82607; 82670; 82728; 83001; 83525; 83735; 84207; 84403; 84436; 84443; 84479; 85025

== ENCOUNTER 2024-10-30 06:34 | Outpatient (CLI) | payer BC, SELFPAY ==
[2024-10-30 09:02] LABS: HCG,Quantitative 7 mIU/ml (0-5.42)
[2024-10-31 03:36] LABS: Progesterone 9.9 ng/mL (.)
== END 2024-10-30 23:59 | disposition home or self-care (01) ==
LOC: LAB 06:36
PROVIDERS: PCP Nurse Practitioner Family; Visit Provider Obstetrics & Gynecology
DX: Z32.01 Encounter for pregnancy test, result positive (principal)
CPT/HCPCS: 36415; 84144; 84702

== ENCOUNTER 2024-11-01 11:08 | Outpatient (CLI) | payer BC, SELFPAY ==
[2024-11-01 13:23] LABS: HCG,Quantitative < 2 mIU/ml (0-5.42)
== END 2024-11-01 23:59 | disposition home or self-care (01) ==
LOC: LAB 11:08
PROVIDERS: PCP Nurse Practitioner Family; Visit Provider Obstetrics & Gynecology
DX: Z32.01 Encounter for pregnancy test, result positive (principal)
CPT/HCPCS: 36415; 84702

== ENCOUNTER 2024-11-26 06:49 | Outpatient (CLI) | payer OTHER, BC, SELFPAY ==
--- NOTE | 2024-11-26 06:45 | MR_ITS ---
FINAL REPORT TECHNIQUE: Multiplanar and multisequence MR imaging was obtained through the thoracic spine. CLINICAL HISTORY: thoracic spine pain with radiculopathy. right sided back and upper abdominal pain. FINDINGS: There is mild dextroscoliosis. Otherwise, there is normal alignment of the thoracic vertebral bodies in the sagittal plane. Vertebral body height is preserved. There is no bone marrow edema or pathologic marrow replacement. Signal intensity within the substance of the spinal cord is normal. No acute paraspinal abnormality. There is no focal disc herniation, central canal stenosis, or significant foraminal narrowing. IMPRESSION: Mild dextroscoliosis, otherwise unremarkable MR of the thoracic spine without contrast. Reviewed, Interpreted and Dictated by Justine Luis MD Transcribed by Blossom Samayoa Authenticated and [facility]
== END 2024-11-26 23:59 | disposition home or self-care (01) ==
PROVIDERS: PCP Nurse Practitioner Family; Visit Provider Nurse Practitioner Family
DX: R07.81 Pleurodynia (principal); M41.9 Scoliosis, unspecified; M54.6 Pain in thoracic spine; G89.29 Other chronic pain; M25.551 Pain in right hip
CPT/HCPCS: 72146

== ENCOUNTER 2024-11-27 08:49 | Outpatient (CLI) | payer OTHER, BC, SELFPAY ==
--- NOTE | 2024-11-27 09:00 | US_ITS ---
FINAL REPORT TECHNIQUE: Sonographic images of the right upper quadrant were obtained. CLINICAL HISTORY: Bowel changes, decreased appetite, abd pain COMPARISON: None FINDINGS: PANCREAS: Unremarkable. LIVER: Homogeneous. No focal hepatic lesion. The portal vein is patent with normal directional flow. GALLBLADDER: There is a nonshadowing echogenic focus in the dependent gallbladder. This could represent a polyp or nonshadowing stone. No gallbladder wall thickening or pericholecystic fluid. COMMON DUCT: 4 mm. Normal for age. RIGHT KIDNEY: The right kidney measures 11.0 cm. There is no hydronephrosis, mass, or stone. FREE FLUID: None. IMPRESSION: Small gallbladder polyp versus nonshadowing stone, otherwise unremarkable exam. Reviewed, Interpreted and Dictated by Justine Luis MD Transcribed by Justina Neumann Authenticated and . [facility]
== END 2024-11-27 23:59 | disposition home or self-care (01) ==
LOC: RAD 08:50
PROVIDERS: PCP Nurse Practitioner Family; Visit Provider Nurse Practitioner Family
DX: R19.4 Change in bowel habit (principal); R10.9 Unspecified abdominal pain; R63.0 Anorexia; Z68.26 Body mass index [BMI] 26.0-26.9, adult
CPT/HCPCS: 76705

== ENCOUNTER 2025-03-05 14:45 | Outpatient (CLI) | payer OTHER, BC, SELFPAY ==
--- OUTSIDE RECORDS SUMMARY | 2025-03-05 14:48 | XMS_ITS | Clinical Summary ---
[facility] Address [address] [place] [address] Care Team Providers Care Surveyor Hydrographic Name Role Phone Calderon Lady NICOLE Primary Care Provider [phone] Allergies No known active allergies Medications Vit-Fe Fumarate-FA ( ) 27-1 MG tablet tablet Take by mouth Daily. Active famotidine (PEPCID) 20 MG tablet Take 1 tablet by mouth 2 (Two) Times a Day As Needed for Heartburn. Active busPIRone (BUSPAR) 5 MG tablet 1 tablet. 08/27/2023 Active gentian edward 1 % topical solution Apply 0.5 mL to the mouth or throat 4 (Four) Times a Day. Active Active Problems Problem Noted Date Diagnosed Date Idiopathic scoliosis 02/03/2024 Musculoligamentous strain 02/03/2024 S/P primary low transverse 06/16/2022 Resolved Problems Problem Noted Date Diagnosed Date Resolved Date labor in third trime ster with delivery 06/16/2022 06/16/2022 Immunizations Immunization Administration Dates Next Due COVID-19 (MODERNA) 1st,2nd,3rd Dose Monovalent 0 09/10/2020,08/12/2020 Family History Medical History Relation Name Comments Hyperlipidemia Father Pedro Breast cancer Neg Hx Ovarian cancer Neg Hx Relation Name Status Comments Father Pedro Social History Tobacco Use Types Packs/Day Years Used Date Smoking Tobacco: Never Smokeless Tobacco: Never Tobacco Cessation:Counseling Given: Not Answered Alcohol Use Standard Drinks/Week Comments Never 0 (1 standard drink = 0.6 oz pur e alcohol) AUDIT-C Answer Date Recorded Q1: How often do you have a drink containing alcohol? Never 06/16/2022 Q2: How many drinks containi ng alcohol do you have on a typical day when you are drinking? Patient does not drink Q3: How often do you have si x or more drinks on one occasion? Never 06/16/2022 [place] Depression Scale Answer Date Recorded Retired [place] Depression Score 3 06/16/2022 Retired EPD Scale: Thought of Harming Self Unrec ognized value 06/16/2022 Abuse Screen Answer Date Recorded Unsafe at Home or Work/School Not on file Feels Threatened by Someone? Not on file Does Anyone Keep You from Co ntacting Others or Doint Things Outside the Home? Not on file 06/18/2023 Physical Sign of Abuse Present Not on file 1 08/18/2022 Housing Stability Answer Date Recorded Current Living Arrangements Not on file 06/06 Potentially Unsafe Housing Conditions Not on seema e 06/18/2023 Family and Community Support Answer Omar e Recorded Help with Day-to-Day Activities Not on file 05/18/2023 Lonely or Isolated Not on file 05/18/2023 Employment Answer Date Recorded Do you want help finding or keeping work or a rachell b? Not on file 05/18/2023 Disabilities Answer Date Recorded Concentrating, Remembering, or Making Decisions Difficulty Not on file 06/18/2023 Doing Errands Independently Difficulty Not on fi le 06/18/2023 Education Answer Date Recorded Help with school or training? Not on file Preferred Language Not on file 05/18/2023 Comments No Sex and Gender Information Value Date Recorded Sex Assigned at Not on file Legal Sex Female 10:09 AM EDT Gender Identity Not on file Sexual Orientation Not on file Last Filed Vital Signs Vital Sign Reading Time Taken Comments Blood Pressure 116/68 02/01/2024 9:56 AM EDT Pulse 81 06/19/2022 8:15 AM EST Temperature 36.7 C (98.1 F) 06/19/2022 8:15 AM EST Respiratory Rate 18 06/19/2022 8:15 AM EST Oxygen Saturation 97% 06/16/2022 12:00 PM EST Inhaled Oxygen Concentration - - Weight 63.2 kg (139 lb 6.4 oz) 02/01/2024 9:56 A M EDT Height 157.5 cm (5' 2 ) 02/01/2024 9:56 AM EDT Body Mass Index 25.5 02/01/2024 9:56 AM EDT Plan of Treatment Health Maintenance Due Date Last Done Comments Annual Gynecologic Pelvic an d Breast Exam 1989 TDAP/TD VACCINES (2 - Tdap) 02/07/2015 02/07/2005 ANNUAL PHYSICAL 07/03/2022 COVID-19 Vaccine (3 - 2023-2 5 season) 2024 09/10/2020, 08/12/2020 INFLUENZA VACCINE 05/06/2025 06/05/2024 HEPATITIS C SCREENING Completed 01/12/2022 Pneumococcal Vaccine 0-49 Aged Out No longer eligible based on patient's age to complete this topic Procedures Procedure Name Priority Date/Time Associated Diagnosis Comments HEPATITIS C ANTIBODY Routine 01/12/2022 10:47 AM EDT care, subsequent , first trimester from Last 3 Months or Most Recently Relevant to Health Maintenance Results * Hepatitis C Antibody (01/12/2022 10:47 AM EDT) Hepatitis C Ab Non-Reacti ve Non-Reacti ve 01/12/2022 7:29 PM EDT [facility] Blood Venipuncture / Unknown 01/12/2022 10:47 AM EDT 01/12/2022 10:48 AM EDT Narrative [facility] - 01/12/2022 7:29 PM EDT Results may be falsely decreased if patient taking Biotin. us Latha Mcgowan MD LAB BLOOD ORDERABLES Final Res ult [facility]
[address] [place] [address], [place] [phone] from Last 3 Months or Most Recently Relevant to Health Maintenance Insurance DONTE ABDUL [id number] MERGED WITH [employer] EMPLOYEE Advance Directives * CPR (Attempt to Resuscitate) (Latest Code Status on File) Date Activated Date Inactivated Comments 06/16/2022 12:47 PM 06/19/2022 5:28 PM Question Answer Comments Code Status (Patient has no pulse and is not breathing): CPR (Attempt to Resuscitate) Medical Interventions (Patie nt has pulse or is breathing): Full * CPR (Attempt to Resuscitate) Date Activated Date Inactivated Comments 06/16/2022 8:08 AM 06/16/2022 12:47 PM Question Answer Comments Code Status (Patient has no pulse and is not breathing): CPR (Attempt to Resuscitate) Medical Interventions (Patie nt has pulse or is breathing): Full Support Level Of Support Discussed With: Patient Release to patient: Routine Release Care Teams Surveyor Hydrographic Relationship Specialty Start Date End Date Lady Mancera APRN [address] [place] [address] [place] [id number] PCP - General Nurse Practitioner 09/07/23
[2025-03-05 16:14] LABS: Free Thyroxine Index 2.4 ug/dL (5.93-13.13); T4 (Thyroxine) 8.5 ug/dl (5.53-11.0); Triiodothryronine (T3) Uptake 28 % (23.5-40.5)
[2025-03-05 17:08] LABS: Thyroid Stimulating Hormone 2.24 uIU/mL (0.465-4.68)
== END 2025-03-05 23:59 | disposition home or self-care (01) ==
LOC: LAB 14:46
PROVIDERS: PCP Nurse Practitioner Family; Visit Provider Obstetrics & Gynecology
DX: R78.89 Finding of other specified substances, not normally found in blood (principal)
CPT/HCPCS: 36415; 84436; 84443; 84479; 86480

== ENCOUNTER 2025-05-07 14:42 | Outpatient (CLI) | payer OTHER, BC, SELFPAY ==
--- OUTSIDE RECORDS SUMMARY | 2025-05-07 14:45 | XMS_ITS | Patient Health Record ---
Author Organization [facility] Address [address] [place] [address] Care Team Providers Care Division Head Name Role Phone Leighann Mariscal Unavailable [phone] Allergies No Known Allergies Reason For Referral No Information Medications Medication SIG (Take, Route, Frequency, Duration) Notes Start Date End Date Status miSOPROStol 200 MCG Tablet Oral; Duration: 1 Days Not-Taking/PRN Ibuprofen 600 MG Tablet Oral; Duration: 15 Days Not-Taking/PRN miSOPROStol 200 MCG Tablet INSERT 4 TABLET VAGINALLY SINGLE DOSE. REPEAT IN 1-2 DAYS IF NEEDED Oral; Duration: 1 Days Not-Taking/PRN BuSpar Active Social History Tobacco Use: Social History Observation Description Date Details (start date - stop date) Never Smoker NA - NA Sex Assigned At : Social History Observation Description Sex Assigned At Female Social History Tobacco Use: Social Info Question Answer Notes Tobacco Use/Smoking Are you a nonsmoker Additional Details Category Social Info Options Details Miscellaneous: Sexually active: SEXUAL AC TIV: Current Problems Problem Type SNOMED Code ICD Code Onset Dates Problem Status W/U Status Risk Notes Problem Bicornate uterus (23732283) Bicornate uterus (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.3) Active confirmed Problem Missed (71435896) , missed (O02.1) 08/04/20 21 Active confirmed Missed miscarriage Problem Missed period (57149089) Missed period (N92.6) Active confirmed Plan Of Treatment No Information Insurance Providers Payer Name Payer Address Payer Phone Subscriber Number Group Number Insured Name Patient Relationship to Insured Coverage Start Date Coverage End Date [place] PPO [address] [place] [address] [id number] Alexis Vivi Self - patient is the insured 2 Medical (General) History Medical History History ICD Code Acid Reflux Anxiety Fibrocystic Breasts Fibroid Uterine Surgical History Surgery Date(Month/Year) 06/16/2022 Hospitalization History Reason Date(Month/Year) c/s
--- OUTSIDE RECORDS SUMMARY | 2025-05-07 14:45 | XMS_ITS | Clinical Summary ---
[facility] Organization [facility] Address [address] [place] [address] Care Team Providers Care Licensed Clinician Name Role Phone Calderon Lady NICOLE Primary Care Provider [phone] Allergies No known active allergies Medications Vit-Fe [...] more drinks on one occasion? Never 06/16/2022 [place] Depression Scale Answer Date Recorded Retired [place] Depression Score 3 06/16/2022 Retired EPD Scale: [...] - Tdap) 02/07/2015 02/07/2005 ANNUAL PHYSICAL 07/03/2022 INFLUENZA VACCINE 03/06/2025 06/05/2024 HEPATITIS C SCREENING Completed 01/12/2022 Pneumococcal [...] ve Non-Reacti ve 01/12/2022 7:29 PM EDT [facility] Blood Venipuncture / Unknown 01/12/2022 10:47 AM EDT 01/12/2022 10:48 AM EDT Narrative [facility] - 01/12/2022 7:29 PM EDT Results may be falsely decreased if patient taking Biotin. us Latha Mcgowan MD LAB BLOOD ORDERABLES Final Res ult [facility]
[address] [place] [address], from Last 3 Months or Most Recently Relevant to Health Maintenance Insurance [employer] EMPLOYEE Advance Directives * CPR (Attempt [...] Release to patient: Routine Release Care Teams Licensed Clinician Relationship Specialty Start Date End Date Lady Mancera APRN [address] [place] [address] PCP - General Nurse Practitioner 09/07/23
--- NOTE | 2025-05-07 15:00 | US_ITS ---
PROCEDURE: US TRANSVAGINAL CLINICAL INDICATION: pelvic/abdominal pain COMPARISON: US US ABDOMEN LIMITED from 11/27/2024 FINDINGS: Transvaginal sonographic images of the pelvis were obtained. UTERUS: 7.9 cm x 5.4cmx 4.0cm anteverted with a combined endometrial thickness of 6.6mm. The uterus has a bicornuate appearance Fibroid 1. 1.0 cm x 0.8 cm x 1.0 cm Fibroid 2. 1.8 cm x 1.5 cm x 1.2 cm LEFT OVARY: 3.0cmx2.6 cmx2.9cm with a volume of 11.9ml. There is a dominant follicle measuring 2.3 cm x 2.2 cm x 1.8 cm. RIGHT OVARY: 3.6 cmx 2.5cmx2.3cm with a volume of 10.5ml. There are multiple small peripheral follicles giving the ovary a polycystic appearance. Both ovaries are seen and appear normal. Doppler flow to both ovaries are seen. There is no fluid in the cul-de-sac. IMPRESSION: 1. Anteverted uterus normal in size. The uterus appears bicornuate. The endometrium appears normal. 2. There are 2 fibroids measuring 1.0 cm and 1.8 cm. 3. The right ovary is seen and appears polycystic. The left ovary contains a dominant follicle measuring 2.3 cm. 4. No fluid in the cul-de-sac. Dictated by: Darrel Chappell MD 05/08/2025 13:09 Darrel Chappell MD in OV 05/08/2025 13:09
== END 2025-05-07 23:59 | disposition home or self-care (01) ==
LOC: RAD 14:43
PROVIDERS: PCP Nurse Practitioner Family; Visit Provider Obstetrics & Gynecology
DX: Q51.3 Bicornate uterus (principal); D25.9 Leiomyoma of uterus, unspecified; E28.2 Polycystic ovarian syndrome; N85.4 Malposition of uterus
CPT/HCPCS: 76830

== ENCOUNTER 2025-06-20 11:09 | Outpatient (CLI) | payer OTHER, BC, SELFPAY ==
--- OUTSIDE RECORDS SUMMARY | 2025-06-20 11:13 | XMS_ITS | Patient Health Record ---
Author Organization [facility] Address [address] [place] [address] Care Team Providers Care Boat Washer Name Role Phone Leighann Mariscal Unavailable [phone] Allergies No Known Allergies Reason For Referral [...] W/U Status Risk Notes Problem Bicornate uterus (28712225) Bicornate uterus (Q51.3) Active confirmed Problem Missed (92580773) , missed (O02.1) 08/04/20 21 Active confirmed Missed miscarriage Problem Missed period (79010687) Missed period (N92.6) Active confirmed Plan Of Treatment No Information Insurance Providers Payer Name Payer Address Payer Phone Subscriber Number Group Number Insured Name Patient Relationship to Insured Coverage Start Date Coverage End Date [place] PPO [address] [place] [address] [id number] Alexis Vivi Self - patient is the insured 2 Medical (General) History Medical History History ICD Code Acid Reflux Anxiety Fibrocystic Breasts Fibroid Uterine Surgical History Surgery Date(Month/Year) 06/16/2022 Hospitalization History Reason Date(Month/Year) c/s
--- OUTSIDE RECORDS SUMMARY | 2025-06-20 11:13 | XMS_ITS | Clinical Summary ---
[facility] Address [address] [place] [address] Care Team Providers Care Mulcher Operator Name Role Phone Calderon Lady NICOLE Primary Care Provider [phone] Allergies No known active allergies Medications Vit-Fe [...] more drinks on one occasion? Never 06/16/2022 [place] Depression Scale Answer Date Recorded [place] Depression Scale Total 3 06/16/2022 The thought of harming myself has occurred to me . Unrecognized value 06/16/2022 Abuse Screen Answer Date Recorded [...] ve Non-Reacti ve 01/12/2022 7:29 PM EDT [facility] Blood Venipuncture / Unknown 01/12/2022 10:47 AM EDT 01/12/2022 10:48 AM EDT Narrative [facility] - 01/12/2022 7:29 PM EDT Results may be falsely decreased if patient taking Biotin. us Latha Mcgowan MD LAB BLOOD ORDERABLES Final Res ult [facility]
[address] [place] [address], from Last 3 Months or Most Recently Relevant to Health Maintenance Insurance [employer] EM[employer] Advance Directives * CPR (Attempt [...] Release to patient: Routine Release Care Teams Mulcher Operator Relationship Specialty Start Date End Date Lady Mancera APRN [address] [place] [address] PCP - General Nurse Practitioner 09/07/23
[2025-06-20 13:13] LABS: Hematocrit 37.4 % (37.0-47.0); Hemoglobin 12.6 g/dL (12.2-16.2); Immature Granulocytes % 0.4 %; Mean Corpuscular HGB Conc 33.7 g/dL (31.8-35.4); Mean Corpuscular Hemoglobin 29.7 pg (27.0-31.2); Mean Corpuscular Volume 88.2 fl (81-99); Nucleated Red Blood Cells % 0 %; Platelet Count 280 K/mm3 (142-424); Red Blood Count 4.24 M/mm3 (4.20-5.40); Red Cell Distribution Width-SD 39.7 fL; White Blood Count 4.5 K/mm3 (4.8-10.8)
[2025-06-20 13:39] LABS: Hemoglobin A1C 5.3 % (4.0-6.0)
[2025-06-20 13:53] LABS: Alanine Aminotransferase 15 U/L (12-78); Albumin Level 4.7 g/dl (3.5-5.0); Albumin/Globulin Ratio 1.7 (1.1-1.8); Alkaline Phosphatase 64 U/L (38-126); Anion Gap 12.4 mEq/L (5-15); Aspartate Amino Transferase 27 U/L (14-36); Bilirubin,Total 1.5 mg/dl (0.2-1.3); Blood Urea Nitrogen 12 mg/dl (7-17); Calcium 9.6 mg/dl (8.4-10.2); Carbon Dioxide 24 mmol/L (22.0-30.0); Chloride 103 mmol/L (98-107); Cholesterol 143 mg/dl (140-200); Creatinine,Serum 0.60 mg/dl (0.52-1.04); Estimated Glomerular Filt Rate 113 ml/min (>60); GFR (African American) 137 ML/MIN (>60); Globulin 2.7 g/dL (1.3-3.2); Glucose 84 mg/dl (74-100); HDL Cholesterol 64 mg/dl (40-60); Potassium 4.4 mmoL/L (3.5-5.1); Sodium 135 mmol/L (136-145); Total Protein,Serum 7.4 g/dl (6.3-8.2); Triglycerides 79 mg/dl (30-150)
[2025-06-20 14:08] LABS: 25-OH Vitamin D, Total 37.1 ng/mL (30-100)
[2025-06-20 14:22] LABS: Thyroid Stimulating Hormone 1.04 uIU/mL (0.465-4.68)
[2025-06-22 10:13] LABS: Insulin Level Total 5.5 uIU/mL (2.6-24.9)
[2025-06-22 11:12] LABS: FSH 7.9 mIU/mL (.); LH 5.4 mIU/mL (.); Testosterone,Total 23 ng/dL (8-60)
== END 2025-06-20 23:59 | disposition home or self-care (01) ==
LOC: LAB 11:10
PROVIDERS: PCP Nurse Practitioner Family; Visit Provider Obstetrics & Gynecology
DX: N96 Recurrent pregnancy loss (principal); Z31.9 Encounter for procreative management, unspecified
CPT/HCPCS: 36415; 80053; 80061; 82166; 82306; 82670; 83001; 83002; 83036; 83525; 84144; 84403; 84443; 85025